=== PATIENT | female | born 1995 | race Caucasian/White ===

== ENCOUNTER → 2016-10-07 | Outpatient (CLI) | payer OTHER ==
--- NOTE | 2016-10-07 17:25 | REP ---
MR CERVICAL SPINE WITHOUT CONTRAST: HISTORY: Neck and left shoulder pain. There is no disc bulge or herniation. The spinal canal and neural foramina are patent. The spinal cord is normal in signal intensity. There is no intradural extramedullary lesion. Normal signal intensity is present in the cervical vertebral bodies. IMPRESSION: There is no disc bulge or herniation. Signed by Heath Balderrama MD 10/08/2016 08:15 A
== END ==
LOC: M RAD 14:42
PROVIDERS: ATTEND Orthopaedic Surgery
DX: M47.892 Other spondylosis, cervical region (principal)